=== PATIENT | male | born 1965 | race Caucasian/White ===

== ENCOUNTER 2023-12-17 13:01 | Outpatient (CLI) | payer OTHER ==
--- NOTE | 2023-12-17 15:32 | Ultrasound Report ---
PROCEDURE: Testicle INDICATIONS: SCROTAL SWELLING TECHNIQUE: Real-time scanning was performed of the scrotum and testicles, with image documentation. Color and p ulse Doppler interrogation was performed of both testicles. COMPARISON: None. FINDINGS: Right: Testicle is normal in size at 5.8 x 3.7 x 3.9 cm, and homogenous in echotexture. Epididymis is normal in overall size and morphology. Large hydrocele. No varicoceles. Overlying scrotal skin i s normal in thickness. Left: Testicle is normal in size at 5.0 x 3.5 x 3.8 cm, and homogeneous in echotexture. Epididymis is normal in overall size and morphology. Large hydrocele. Mild varicocele. Overlying scrotal skin i s normal in thickness. Doppler: Color and pulse Doppler demonstrate normal and symmetric arterial flow in both testicles. IMPRESSION: Prominent bilateral hydroceles. Mild left varicocele. Reviewed by: Lia Carroll MD on 12/17/2023 3:31 PM PDT Approved by: Lia Carroll MD on 12/17/2023 3:31 PM PDT Station ID: [id number]
== END 2023-12-17 13:02 | disposition home or self-care (01) ==
LOC: DI 13:01
PROVIDERS: ATTEND Family Medicine
DX: N43.3 Hydrocele, unspecified (principal); I86.1 Scrotal varices